=== PATIENT | female | born 2005 | race Hispanic/Latino ===

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

== ENCOUNTER 2024-03-10 08:23 | Emergency (ER) | payer BC ==
[~2024-03-10] VITALS: Ht 160 cm; Wt 58.7 kg
[~2024-03-10 08:23] MED LIST changes: -ACETAMINOPHEN 1000 MG/100 ML IV ONE; -ATROPINE SULFATE 1 MG/ML VIAL ONE; -DEXAMETHASONE SOD PHOS INJ 4 MG/ML SDV ONE; -DEXMEDETOMIDINE HCL 200 MCG/2 ML VIAL ONE; -EPHEDRINE SULFATE INJ 50 MG/ML VIAL ONE; -FENTANYL CITRATE/PF 100MCG/2 ML INJ ONE; -LIDOCAINE 1% W/EPINEPHRINE 20 ML VIAL ONE; -LIDOCAINE HCL 2% LOCAL INJ 5 ML SDV VIAL INJ ONE; -MIDAZOLAM HCL 2 MG/2 ML VIAL ONE; -NEOSTIGMINE 1 MG/ML 10ML VIAL ONE; -ONDANSETRON HCL INJ 2MG/ML 2ML 2 MG/ML VIAL ONE; -POVIDONE IODINE 0.05% 0.05 % ML PO ONE; -PROPOFOL IV EMULSION 10 MG/ML 20 ML VIAL ONE; -ROCURONIUM BROMIDE 10 MG/ML 5ML VIAL IV ONE; -SEVOFLURANE INHAL SOLN 250 ML PEN BTL ONE
[2024-03-10 09:04] VITALS: PULSE 73; RESP 16; TEMP 97.9
[2024-03-10 09:45] VITALS: BP 107/71; PULSE 67; RESP 16; TEMP 98.1; O2SAT 99
== END 2024-03-10 09:43 | disposition home or self-care (01) ==
LOC: FSED 08:26
DX: R09.89 Other specified symptoms and signs involving the circulatory and respiratory systems (principal); B34.9 Viral infection, unspecified; Z11.52 Encounter for screening for COVID-19; F17.290 Nicotine dependence, other tobacco product, uncomplicated
CPT/HCPCS: 0223U; 87400; 93005; 99284